=== PATIENT | female | born 1995 | race American Indian/Alaskan Native ===

== ENCOUNTER 2018-12-31 06:07 | Emergency (ER) | payer MEDICAID, OTHER ==
[2018-12-31 06:23] VITALS: BP 123/59
--- NOTE | 2018-12-31 07:16 | Emergency Department Report ---
HPI - General Chief Complaint: Sickle Cell Crisis Time Seen by Provider: 12/31/18 06:59 - HPI HPI: Room 23 The patient is a 23-year-old female presented with a chief complaint sickle cell pain crisis. The patient states she awakened this morning at 05:00 with pain in her lower back and bilateral lower extremities. Patient states pain feels consistent with her sickle cell pain crises. The patient states she took Dilaudid 8 mg po and drank water but it did not improve her pain. Patient denies history of fever. Patient gives her pain a score of 9/10 Location: [See above] Duration: [See above] Quality: [See above] Severity: [See above] Modifying factors: [see above] Context: [see above] Mode of transportation: [not driving] ED Past Medical Hx - Past Medical History Previous Medical History?: Yes Hx Sickle Cell Disease: Yes - Surgical History Past Surgical History?: Yes Additional Surgical History: port. c-sectionx4 - Family History Family history: no significant - Social History Smoking Status: Never Smoker Substance Use Type: None (denies illicit drug use) - Medications Home Medications: Home Medications Medication Instructions Recorded Confirmed Last Taken Type Ibuprofen [Motrin 800 MG tab] 800 mg PO Q8HR PRN #20 tablet 12/31/18 Unknown Rx levoFLOXacin [Levaquin TAB] 500 mg PO QDAY #10 tablet 12/31/18 Unknown Rx ED Review of Systems ROS: Stated complaint: SICKLE CELL CRISIS Other details as noted in HPI Constitutional: denies: fever Eyes: denies: eye pain ENT: denies: throat pain Respiratory: no symptoms reported Cardiovascular: denies: chest pain Endocrine: no symptoms reported Gastrointestinal: denies: abdominal pain Genitourinary: denies: dysuria Musculoskeletal: back pain, myalgia Neurological: denies: headache Physical Exam - Physical Exam Vital Signs: Vital Signs 12/31/18 06:21 Temperature 98.1 F Pulse Rate 107 H Respiratory 18 Rate Blood Pressure 123/59 [Right] O2 Sat by Pulse 95 Oximetry Physical Exam: GENERAL: The patient is well-developed well-nourished female lying on stretcher not appearing to be in acute distress. [] HEENT: Normocephalic. Atraumatic. Extraocular motions are intact. Patient has moist mucous membranes. NECK: Supple. Trachea midline CHEST/LUNGS: Clear to auscultation. There is no respiratory distress noted. HEART/CARDIOVASCULAR: Regular. There is no tachycardia. There is no gallop rub or murmur. ABDOMEN: Abdomen is soft, nontender. Patient has normal bowel sounds. There is no abdominal distention. SKIN: There is no rash. There is no edema. There is no diaphoresis. NEURO: The patient is awake, alert, and oriented. The patient is cooperative. The patient has normal speech MUSCULOSKELETAL: There is no evidence of acute injury. ED Course Vital Signs 12/31/18 06:21 Temperature 98.1 F Pulse Rate 107 H Respiratory 18 Rate Blood Pressure 123/59 [Right] O2 Sat by Pulse 95 Oximetry ED Medical Decision Making - Lab Data Result diagrams: 12/31/18 07:16 12/31/18 07:21 Laboratory Tests 12/31/18 12/31/18 12/31/18 07:00 07:16 07:21 WBC 26.8 H RBC 2.47 L Hgb 8.2 L Hct 22.4 L MCV 91 MCH 33 H MCHC 37 H RDW 29.4 H Plt Count 383 Add Manual Diff Complete Total Counted 100 Seg Neuts % (Manual) 83.0 H Band Neutrophils % 1.0 Lymphocytes % (Manual) 14.0 Reactive Lymphs % (Man) 0 Monocytes % (Manual) 2.0 Eosinophils % (Manual) 0 Basophils % (Manual) 0 Metamyelocytes % 0 Myelocytes % 0 Promyelocytes % 0 Blast Cells % 0 Nucleated RBC % 27.0 H Seg Neutrophils # Man 22.2 H Band Neutrophils # 0.3 Lymphocytes # (Manual) 3.8 Abs React Lymphs (Man) 0.0 Monocytes # (Manual) 0.5 Eosinophils # (Manual) 0.0 Basophils # (Manual) 0.0 Metamyelocytes # 0.0 Myelocytes # 0.0 Promyelocytes # 0.0 Blast Cells # 0.0 WBC Morphology Not Reportable Hypersegmented Neuts Not Reportable Hyposegmented Neuts Not Reportable Hypogranular Neuts Not Reportable Smudge Cells Not Reportable Toxic Granulation Not Reportable Toxic Vacuolation Not Reportable Dohle Bodies Not Reportable Pelger-Huet Anomaly Not Reportable Luis Alfredo Rods Not Reportable Platelet Estimate Consistent w auto Clumped Platelets Not Reportable Plt Clumps, EDTA Not Reportable Large Platelets Not Reportable Giant Platelets Few Platelet Satelliting Not Reportable Plt Morphology Comment Not Reportable RBC Morphology Not Reportable Dimorphic RBCs Not Reportable Polychromasia 2+ Hypochromasia Not Reportable Poikilocytosis Not Reportable Anisocytosis 3+ Microcytosis Few Macrocytosis 1+ Spherocytes Not Reportable Pappenheimer Bodies Not Reportable Sickle Cells 2+ Target Cells Few Tear Drop Cells Not Reportable Ovalocytes Not Reportable Helmet Cells Not Reportable Otto-Mcnab Bodies Not Reportable Proctor Rings Not Reportable Fenton Cells Not Reportable Bite Cells Not Reportable Crenated Cell Not Reportable Elliptocytes Not Reportable Acanthocytes (Spur) Not Reportable Rouleaux Not Reportable Hemoglobin C Crystals Not Reportable Schistocytes Not Reportable Malaria parasites Not Reportable Percent Retic 23.09 H Sickle Cell Screen Positive Naveen Bodies Not Reportable Hem Pathologist Commnt No POC ABG pH POC ABG pCO2 POC ABG pO2 POC ABG HCO3 POC ABG Total CO2 POC ABG O2 Sat POC ABG Base Excess FiO2 Sodium 139 Potassium 4.2 Chloride 106.1 Carbon Dioxide 19 L Anion Gap 18 BUN 12 Creatinine 0.5 L Estimated GFR > 60 BUN/Creatinine Ratio 24 Glucose 107 H Calcium 8.7 Total Bilirubin Direct Bilirubin Indirect Bilirubin AST ALT Alkaline Phosphatase Total Protein Albumin Albumin/Globulin Ratio HCG, Qual Urine Color Urine Turbidity Urine pH Ur Specific Lamont Urine Protein Urine Glucose (UA) Urine Ketones Urine Blood Urine Nitrite Urine Bilirubin Urine Urobilinogen Ur Leukocyte Esterase Urine WBC (Auto) Urine RBC (Auto) U Epithel Cells (Auto) Urine Bacteria (Auto) Urine Mucus 12/31/18 12/31/18 12/31/18 07:21 07:22 07:37 WBC RBC Hgb Hct MCV MCH MCHC RDW Plt Count Add Manual Diff Total Counted Seg Neuts % (Manual) Band Neutrophils % Lymphocytes % (Manual) Reactive Lymphs % (Man) Monocytes % (Manual) Eosinophils % (Manual) Basophils % (Manual) Metamyelocytes % Myelocytes % Promyelocytes % Blast Cells % Nucleated RBC % Seg Neutrophils # Man Band Neutrophils # Lymphocytes # (Manual) Abs React Lymphs (Man) Monocytes # (Manual) Eosinophils # (Manual) Basophils # (Manual) Metamyelocytes # Myelocytes # Promyelocytes # Blast Cells # WBC Morphology Hypersegmented Neuts Hyposegmented Neuts Hypogranular Neuts Smudge Cells Toxic Granulation Toxic Vacuolation Dohle Bodies Pelger-Huet Anomaly Luis Alfredo Rods Platelet Estimate Clumped Platelets Plt Clumps, EDTA Large Platelets Giant Platelets Platelet Satelliting Plt Morphology Comment RBC Morphology Dimorphic RBCs Polychromasia Hypochromasia Poikilocytosis Anisocytosis Microcytosis Macrocytosis Spherocytes Pappenheimer Bodies Sickle Cells Target Cells Tear Drop Cells Ovalocytes Helmet Cells Otto-Mcnab Bodies Proctor Rings Grace Cells Bite Cells Crenated Cell Elliptocytes Acanthocytes (Spur) Rouleaux Hemoglobin C Crystals Schistocytes Malaria parasites Percent Retic Sickle Cell Screen Naveen Bodies Hem Pathologist Commnt POC ABG pH 7.434 POC ABG pCO2 34.7 L POC ABG pO2 POC ABG HCO3 23.3 POC ABG Total CO2 24 POC ABG O2 Sat 72 POC ABG Base Excess -1 FiO2 21 Sodium Potassium Chloride Carbon Dioxide Anion Gap BUN Creatinine Estimated GFR BUN/Creatinine Ratio Glucose Calcium Total Bilirubin 5.30 H Direct Bilirubin 0.4 H Indirect Bilirubin 4.9 AST 74 H ALT 19 Alkaline Phosphatase 133 H Total Protein 7.5 Albumin 4.0 Albumin/Globulin Ratio 1.1 HCG, Qual Negative Urine Color Urine Turbidity Urine pH Ur Specific Lamont Urine Protein Urine Glucose (UA) Urine Ketones Urine Blood Urine Nitrite Urine Bilirubin Urine Urobilinogen Ur Leukocyte Esterase Urine WBC (Auto) Urine RBC (Auto) U Epithel Cells (Auto) Urine Bacteria (Auto) Urine Mucus 12/31/18 12/31/18 07:49 Unknown WBC RBC Hgb Hct MCV MCH MCHC RDW Plt Count Add Manual Diff Total Counted Seg Neuts % (Manual) Band Neutrophils % Lymphocytes % (Manual) Reactive Lymphs % (Man) Monocytes % (Manual) Eosinophils % (Manual) Basophils % (Manual) Metamyelocytes % Myelocytes % Promyelocytes % Blast Cells % Nucleated RBC % Seg Neutrophils # Man Band Neutrophils # Lymphocytes # (Manual) Abs React Lymphs (Man) Monocytes # (Manual) Eosinophils # (Manual) Basophils # (Manual) Metamyelocytes # Myelocytes # Promyelocytes # Blast Cells # WBC Morphology Hypersegmented Neuts Hyposegmented Neuts Hypogranular Neuts Smudge Cells Toxic Granulation Toxic Vacuolation Dohle Bodies Pelger-Huet Anomaly Luis Alfredo Rods Platelet Estimate Clumped Platelets Plt Clumps, EDTA Large Platelets Giant Platelets Platelet Satelliting Plt Morphology Comment RBC Morphology Dimorphic RBCs Polychromasia Hypochromasia Poikilocytosis Anisocytosis Microcytosis Macrocytosis Spherocytes Pappenheimer Bodies Sickle Cells Target Cells Tear Drop Cells Ovalocytes Helmet Cells Otto-Mcnab Bodies Proctor Rings Grace Cells Bite Cells Crenated Cell Elliptocytes Acanthocytes (Spur) Rouleaux Hemoglobin C Crystals Schistocytes Malaria parasites Percent Retic Sickle Cell Screen Naveen Bodies Hem Pathologist Commnt POC ABG pH 7.512 H POC ABG pCO2 POC ABG pO2 71 L POC ABG HCO3 21.1 POC ABG Total CO2 22 POC ABG O2 Sat 96 POC ABG Base Excess -2 FiO2 21 Sodium Potassium Chloride Carbon Dioxide Anion Gap BUN Creatinine Estimated GFR BUN/Creatinine Ratio Glucose Calcium Total Bilirubin Direct Bilirubin Indirect Bilirubin AST ALT Alkaline Phosphatase Total Protein Albumin Albumin/Globulin Ratio HCG, Qual Urine Color Yellow Urine Turbidity Slightly-cloudy Urine pH 7.0 Ur Specific Lamont 1.010 Urine Protein 100 mg/dl Urine Glucose (UA) Neg Urine Ketones Neg Urine Blood Lg Urine Nitrite Neg Urine Bilirubin Neg Urine Urobilinogen < 2.0 Ur Leukocyte Esterase Mod Urine WBC (Auto) 48.0 H Urine RBC (Auto) 10.0 U Epithel Cells (Auto) 22.0 H Urine Bacteria (Auto) 2+ Urine Mucus Few - Radiology Data Radiology results: report reviewed (chest x-ray), image reviewed (chest x-ray) interpreted by me: Chest x-ray-no focal infiltrates, no pneumothorax [facility] [address] [place] [address] XRay Report Signed Patient: ERYN ZALDIVAR MR #: [id number] : 1995 Acct:[id number] Age/Sex: 23 / F ADM Date: 12/31/18 Loc: ED Attending Dr: Ordering Physician: KOSTA GOLDSMITH MD Date of Service: 12/31/18 Procedure(s): XR chest 1V ap Accession Number(s): [id number] cc: KOSTA GOLDSMITH MD Fluoro Time In Minutes: AP CHEST: HISTORY: Hypoxia No comparison. Mild central pulmonary venous congestion is suspected. The lungs are clear otherwise. No pleural effusion or pneumothorax. Normal heart size. A left [id number] terminates in the superior right atrium. The bony structures are grossly intact. IMPRESSION: Mild central pulmonary venous congestion. Transcribed By: TTR Dictated By: JASMYN CAGE JR, MD Electronically Authenticated By: JASMYN CAGE JR, MD Signed Date/Time: 12/31/18804 DD/ 3 TD/TT: 12/31/18804 - Differential Diagnosis sickle cell pain crisis, PE Critical care attestation.: If time is entered above; I have spent that time in minutes in the direct care of this critically ill patient, excluding procedure time. ED Disposition Clinical Impression: Sickle cell pain crisis, UTI (urinary tract infection) Disposition: - TO HOME OR SELFCARE Is pt being admited?: No Does the pt Need Aspirin: No Condition: Stable Instructions: Sickle Cell Crisis (ED) Additional Instructions: Return to the emergency department immediately should you develop worsening symptoms, fever, inability to tolerate food or liquid or any other concerns. Prescriptions: levoFLOXacin [Levaquin TAB] 500 mg PO QDAY #10 tablet Ibuprofen [Motrin 800 MG tab] 800 mg PO Q8HR PRN #20 tablet PRN Reason: Pain , Severe (7-10) Referrals: PRIMARY CARE, [Primary Care Provider] - 3-5 Days Time of Disposition: 09:50
[2018-12-31] MEDS ORDERED: TORADOL IV ONE (07:17)
[2018-12-31 07:29] LABS: Hematocrit 22.4 % (30.3-42.9); Hemoglobin 8.2 gm/dl (10.1-14.3); Mean Corpuscular HGB Conc 37 % (30-34); Mean Corpuscular Volume 91 fl (79-97); Red Blood Count 2.47 M/mm3 (3.65-5.03)
[2018-12-31 07:34] LABS: Red Cell Distribution Width 29.4 % (13.2-15.2)
[2018-12-31 07:44] LABS: BUN/Creatinine Ratio 24; Blood Urea Nitrogen 12 mg/dL (7-17); Calcium 8.7 mg/dL (8.4-10.2); Hemolysis Index 93
[2018-12-31] MEDS ORDERED: DILAUDID IV ONE (07:56)
[2018-12-31] MEDS ORDERED: BENADRYL IV ONE (07:56)
[2018-12-31] MEDS ORDERED: D5NS 0.2% 1,000 ML IV SCH (08:00)
--- NOTE | 2018-12-31 08:10 | XRay Report ---
AP CHEST: HISTORY: Hypoxia No comparison. Mild central pulmonary venous congestion is suspected. The lungs are clear otherwise. No pleural effusion or pneumothorax. Normal heart size. A left [id number] terminates in the superior right atrium. The bony structures are grossly intact. IMPRESSION: Mild central pulmonary venous congestion.
[2018-12-31 08:14] LABS: Bilirubin,Direct 0.4 mg/dL (0-0.2)
[2018-12-31 08:48] LABS: Basophils % (Manual) 0 % (0.0-1.8); Eosinophils % (Manual) 0 % (0.0-4.3); Total Cells Counted 100
[2018-12-31 08:50] LABS: Anisocytosis 3+; Band Neutrophils # (Manual) 0.3 K/mm3
[2018-12-31 08:51] LABS: Giant Platelets Few; Macrocytosis 1+; Platelet Estimate Consistent w Auto; Sickle Cells 2+; Target Cells Few
[2018-12-31 09:23] LABS: Bacteria,Urine 2+ /HPF (Negative); Bilirubin,Urine NEG (Negative); Blood,Urine LG (Negative); Color,Urine Yellow (Yellow); Mucus,Urine FEW /HPF; Urobilinogen,Urine < 2.0 mg/dL (<2.0)
[2018-12-31 09:27] LABS: Platelet Count 383 K/mm3 (140-440)
[2018-12-31] MEDS ORDERED: FLUSH HEPARIN IV ONE (09:33)
[2018-12-31] MEDS ORDERED: LEVAQUIN PO ONE (09:49)
== END 2018-12-31 10:33 | disposition home or self-care (01) ==
LOC: ED 06:07
DX: D57.819 Other sickle-cell disorders with crisis, unspecified (principal); N39.0 Urinary tract infection, site not specified; Z88.1 Allergy status to other antibiotic agents
CPT/HCPCS: 36415; 71045; 80048; 80076; 81001; 82803; 84703; 85007; 85025; 85045; 85660; 96374; 96375; 99284; J1170; J1200; J1642; J1885